=== PATIENT | female | born 1990 | race Caucasian/White ===

== ENCOUNTER → 2016-08-22 | Outpatient (CLI) | payer OTHER ==
[~2016-08-22] MED LIST: DOCU-243 PO; FERR325T36 PO; HYDR-3811 PO; IBP200T PO; IBUP-1772 PO; LANO28OI TOP; MAGN400O7 PO; NAPR220T76 PO; NAPR250T PO; NORE0.3527 PO; NORE0.354 PO; NORG1TAB14 PO; PREN1TAB79 PO
[2016-08-22 16:28] VITALS: BP 120/80
--- NOTE | 2016-08-22 16:28 | Urgent Care T Sheet Gen (E) ---
Intake General Temperature (Fahrenheit): 97.9 Pulse: 81 Blood Pressure Systolic: 120 Blood Pressure Diastolic: 80 Respirations: 20 SPO2: 99 Description of Symptoms Patient presents with illness since Friday. Patient states that the middle of the night, she started vomiting. Vomited all Friday. Then Friday the nasal congestion and cough started and the vomiting stopped. No fever. Started taking Mucinex yesterday. History of Present Illness Allergies: Coded Allergies: Penicillins (Verified Allergy, Mild, Rash, 11/04/12) Childhood experience. Home Meds Active Scripts Lanolin,Anhydrous (Lanolin Ointment)28 Gm Oint28 Gm TOP PRN PRN nipple pain #28 GM Ref 0 Prov:JEVON MORALES MD 09/01/15 Ibuprofen 600 Mg [id number] Mg PO Q6H PRN PAIN #30 TAB Prov:JEVON MORALES MD 09/01/15 Reported Medications Vits W-Ca,Fe,Fa(<1MG) ( Vitamins)1 Each Tablet1 Each PO DAILY 11/04/12 Respiratory Constitutional Symptoms: No Fever, Malaise EENTM: Nose Congestion Respiratory: CoughNo Short of breath, No Wheezing Cardiovascular: No symptoms reported Gastrointestinal/Abdominal: Vomiting (friday and friday, none since then) Genitourinary: No symptoms reported Estimated Date of Delivery: 09-13-2015 All Other Systems Reviewed Remaining Systems: All other systems reviewed with negative findings Past Rtiwfau-Uuuiid-Fseora Hx Patient's Social History Recent foreign travel: No Surgeries/Hospitalizations Hospitalization/Surgery Hx: none per pt Respiratory Respiratory History: None Cardiovascular Cardiovascular History: None Neuro/Muscular Neuro/Muscular History: None Reproductive System : 4 Abortions: 0 Living Children: 2 HIV/AIDS: Negative Sexually Transmitted Diseases: No Genitouinary Genitourinary History: None Gastrointestinal GI/Endocrine History: None Diabetes Diabetes: No HEENT Impaired Vision: None Hearing Impaired: None Integumentary Integumentary History: None Psychosocial Behavior Disorders: None Physical Exam Physical Exam General Appearance: WD/WN No apparent distress Eyes, Ears, Nose, Throat Ex: TMs normal Pharyngeal erythema (clear, thin PND) Other (clear, thin nasal drainage. no nasal swelling.) Neck Exam: SuppleNo Lymphadenopathy Respiratory Exam: Lungs clear Normal breath sounds Cardiovascular Exam: Regular rate, rhythm Departure Urgent Care Impression Impression: Primary Impression: URI (upper respiratory infection) Qualified Code: J00 - Acute nasopharyngitis [common cold] Departure Disposition: HOME OR SELF-CARE Condition: Stable Referrals: MALORIE TOLLIVER MD (PCP) Additional Instructions: Most likely a viral URI which also caused the day of vomiting. Will treat symptomatically. Rest. Fluids Continue with Mucinex as directed Return as needed Patient understands DC instructions. All questions were answered. End of report . TEN GOMEZ Aug 22, 2016 16:28
== END ==
LOC: MHUC 15:54
PROVIDERS: ATTEND Physician Assistant
DX: J00 Acute nasopharyngitis [common cold] (principal)
CPT/HCPCS: 99213

== ENCOUNTER 2016-12-19 18:11 | Emergency (ER) | payer OTHER ==
[~2016-12-19] VITALS: Ht 154.9 cm; Wt 114.0 kg
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
--- OUTSIDE RECORDS SUMMARY | 2016-12-19 18:16 | XMS REPORT | Continuity of Care Document ---
Author Author [facility] Address Unknown Phone Unavailable Allergies Active Description Code Type Severity Reaction Onset Reported/Identified Relationship to Patient Clinical Status Yes Penicillins [id number] Drug Allergy Mild Rash 11/04/2012 Medications Problems [...] TOLLIVER MD Ot 641.03 PLACENTA PREVIA-ANTEPART 01/31/2016 MALORIE TOLLIVER MD Ot 648.93 OTH CURR [...] V28.9 SCREENING NOS 09/05/2016 UNRULY NATHAN, MALORIE iKrby Ot V07.2 PROPHYLACT IMMUNOTHERAPY 09/05/2016 MALORIE TOLLIVER [...] Ot M79.645 PAIN IN LEFT FINGER(S) 09/09/2016 ETN BYRD Ot S62.625A DISP FX OF MEDIAL [...] 649.53 SPOTTING COMP , ANTEPARTUM COND 10/13/2016 MALORIE TOLLIVER MD Ot V28.89 OTHER SPECIFIED [...] LAPAROSCOPIC CHOLECYSTECTOMY 09/08/2014 87.53 INTRAOPER CHOLANGIOGRAM 09/08/2014 56509MW DRAINAGE OF AMNIOTIC FL, THERAP FROM POC 2015 09O6PKP DELIVERY OF PRODUCTS OF CONCEPTION, EXTE 2015 Results Encounters ACCT No. Visit Date/Time Discharge Status Pt. Type Provider Facility Loc./Unit Complaint [id number] 08/30/2015 13:25:00 2015 15:00:00 DIS Inpatient ANDREW NATHAN, [facility] OB DELIVERY [id number] 08/29/2015 17:47:00 2015 18:25:00 DIS Outpatient UNRULY NATHAN, [facility] OBGOP LABOR EVAL [id number] 06/22/2015 09:22:00 2014 23:59:59 CLS Outpatient UNRULY NATHAN, [facility] EUOP [id number] 06/22/2015 09:15:00 2014 09:15:00 CAN Preadmit UNRULY NATHAN, [facility] LAB [id number] 05/18/2015 09:51:00 2014 23:59:59 CLS Outpatient UNRULY NATHAN, [facility] RAD SIZE/DATES [id number] 05/11/2015 13:27:00 2014 23:59:59 CLS Outpatient UNRULY NATHAN, [facility] RAD [id number] 05/11/2015 11:38:00 2014 23:59:59 CLS Outpatient UNRULY NATHAN, [facility] CLAB.GORMS [id number] 03/23/2015 09:18:00 2014 23:59:59 CLS Outpatient UNRULY NATHAN, [facility] RAD PLACENTA PREVIA [id number] 02/22/2015 13:21:00 2014 23:59:59 CLS Outpatient UNRULY NATHAN, [facility] RAD VAGINAL BLEEDING [id number] 02/22/2015 12:25:00 2014 23:59:59 CLS Outpatient UNRULY NATHAN, [facility] LAB LAB DROP OFF BY DR CARTER [id number] 09/08/2014 17:17:00 2014 11:30:00 DIS Outpatient MARIAN NATHAN, [facility] ASC ACUTE BILIARY COLIC [id number] 09/07/2014 12:41:00 2014 23:59:59 CLS Outpatient UNRULY NATHAN, [facility] RAD ABD PAIN [id number] 06/04/2014 17:35:00 2013 09:40:00 DIS Inpatient UNRULY NATHAN, [facility] OB VAG [facility] [id number] 06/02/2014 13:16:00 2013 14:30:00 DIS Outpatient UNRULY NATHAN, [facility] [id number] 06/01/2014 19:35:00 2013 22:40:00 [facility] [id number] 04/27/2014 20:46:00 2013 21:47:00 DIS Outpatient UNRULY NATHAN, [facility] [id number] 04/22/2014 22:52:00 2013 02:00:00 DIS Outpatient UNRULY NATHAN, [facility] LABOR EVAL [id number] 04/05/2014 09:49:00 2013 13:10:00 [facility] [id number] 03/25/2014 08:46:00 2013 23:59:59 CLS Outpatient UNRULY NATHAN, [facility] RAD SIZE GREATER THAN DATES [id number] 03/23/2014 09:15:00 2013 23:59:59 CLS Outpatient UNRULY NATHAN, [facility] LAB LAB DROP OFF [id number] 01/24/2014 10:24:00 2013 13:45:00 DIS Outpatient UNRULY NATHAN, [facility] [id number] 12/21/2013 13:46:00 2013 23:59:59 CLS Outpatient TOLLIVER MD, [facility] RAD BLEEDING 2ND TRIMESTER [id number] 11/19/2013 15:06:00 2013 23:59:59 CLS Outpatient UNRULY NATHAN, [facility] OBGOP INJECTION [id number] 11/17/2013 12:55:00 2013 23:59:59 CLS Outpatient UNRULY NATHAN, [facility] RAD FIRST TRIMESTER BLEEDING [id number] 10/19/2013 12:48:00 2013 23:59:59 CLS Outpatient UNRULY NATHAN, [facility] RAD UNKNOWN LAST MENSTRUAL DATE [id number] 10/06/2013 13:42:00 2013 23:59:59 CLS Outpatient UNRULY NATHAN, [facility] RAD SIZE DATE [id number] 08/22/2016 15:54:00 [id number]2016 15:30:00 [facility] [id number] 01/31/2016 15:04:00 ACT Outpatient PATRICIA [facility] [id number] 09/21/2015 00:00:00 Document Registration [id number] 12/12/2012 11:45:00 Document Registration [id number] 12/09/2012 01:15:00 Document Registration [id number] 11/04/2012 15:02:00 Document Registration [id number] 09/21/2012 12:42:00 Document Registration [id number] 09/11/2012 13:43:00 Document Registration [id number] 09/08/2012 22:26:00 Document Registration [id number] 07/16/2012 08:38:00 Document Registration [id number] 04/15/2012 10:59:00 Document Registration
--- NOTE | 2016-12-19 19:07 | NUR ---
Temp rechecked 99.2 F at this time.
[2016-12-19] MEDS ORDERED: AZTH250C PO (19:09)
[2016-12-19 19:20] VITALS: BP 129/76
== END 2016-12-19 19:21 | disposition home or self-care (01) ==
LOC: ED 18:12
DX: J20.9 Acute bronchitis, unspecified (principal)
CPT/HCPCS: 99281; 99282